=== PATIENT | female | born 2000 | race Caucasian/White ===

== ENCOUNTER 2020-10-11 11:53 | Emergency (ER) | payer OTHER ==
[~2020-10-11] VITALS: Ht 172 cm; Wt 99.0 kg
[2020-10-11] MEDS ORDERED: NS IV 1000 ML 1,000 ML IV SCH (12:15)
[2020-10-11] MEDS ORDERED: KETOROLAC 30 MG/ML VIAL IVP ONE (12:15)
[2020-10-11] MEDS ORDERED: ONDANSETRON 4 MG/2 ML (SDV) Z0FRAN IVP ONE (12:15)
--- NOTE | 2020-10-11 12:20 | ED Abdominal Pain ---
General Chief Complaint: Abdominal/GI Problems Stated Complaint: RLQ PAIN Source of Information: Patient Exam Limitations: No Limitations History of Present Illness Date Seen by Provider: Oct 11, 2020 Time Seen by Provider: 12:18 Initial Comments To ER with reports of right flank pain for about 24 to 36 hours associated with intermittent nausea. No dysuria. History of cholecystectomy and appendectomy. No cough no shortness of breath no fevers no chills. Timing/Duration: 1-2 Days Severity/Quality: Moderate Location: Flank Radiation: No Radiation Activities at Onset: None Associated Symptoms: Denies Symptoms Allergies and Home Medications Allergies Coded Allergies: ciprofloxacin (Verified Allergy, Severe, EDEMA, 10/11/20) Home Medications No Active Prescriptions or Reported Meds Patient Home Medication List Home Medication List Reviewed: Yes Review of Systems Review of Systems Constitutional: see HPI EENTM: No Symptoms Reported Respiratory: No Symptoms Reported Cardiovascular: No Symptoms Reported Gastrointestinal: No Symptoms Reported Genitourinary: See HPI, Flank Pain Musculoskeletal: no symptoms reported Skin: no symptoms reported Psychiatric/Neurological: No Symptoms Reported Endocrine: No Symptoms Reported Hematologic/Lymphatic: No Symptoms Reported Physical Exam Vital Signs Vital Signs - First Documented 10/11/20 12:00 Temp 37.0 Pulse 67 Resp 16 B/P (MAP) 151/87 (108) Pulse Ox 97 O2 Delivery Room Air Capillary Refill : Height/Weight/BMI Height: '" Weight: lbs. oz. kg; BMI Method: General Appearance: WD/WN, no apparent distress HEENT: PERRL/EOMI, normal ENT inspection Respiratory: no respiratory distress, no accessory muscle use Cardiovascular: regular rate, rhythm, no murmur Gastrointestinal: normal bowel sounds, non tender, soft Extremities: normal range of motion, non-tender Back: CVA tenderness (R) Neurologic/Psychiatric: alert, normal mood/affect, oriented x 3 Skin: normal color, warm/dry Progress/Results/Core Measures Results/Orders Lab Results Laboratory Tests Test 10/11/20 12:15 Range/Units White Blood Count 6.6 4.3-11.0 10^3/uL Red Blood Count 4.66 3.80-5.11 10^6/uL Hemoglobin 14.0 11.5-16.0 g/dL Hematocrit 41 35-52 % Mean Corpuscular Volume 88 80-99 fL Mean Corpuscular Hemoglobin 30 25-34 pg Mean Corpuscular Hemoglobin Concent 34 32-36 g/dL Red Cell Distribution Width 12.0 10.0-14.5 % Platelet Count 225 130-400 10^3/uL Mean Platelet Volume 9.9 9.0-12.2 fL Immature Granulocyte % (Auto) 0 % Neutrophils (%) (Auto) 60 42-75 % Lymphocytes (%) (Auto) 31 12-44 % Monocytes (%) (Auto) 7 0-12 % Eosinophils (%) (Auto) 1 0-10 % Basophils (%) (Auto) 0 0-10 % Neutrophils # (Auto) 3.9 1.8-7.8 10^3/uL Lymphocytes # (Auto) 2.1 1.0-4.0 10^3/uL Monocytes # (Auto) 0.5 0.0-1.0 10^3/uL Eosinophils # (Auto) 0.1 0.0-0.3 10^3/uL Basophils # (Auto) 0.0 0.0-0.1 10^3/uL Immature Granulocyte # (Auto) 0.0 0.0-0.1 10^3/uL Urine Color YELLOW Urine Clarity CLEAR Urine pH 8.0 5-9 Urine Specific Tracy 1.015 L 1.016-1.022 Urine Protein NEGATIVE NEGATIVE Urine Glucose (UA) NEGATIVE NEGATIVE Urine Ketones NEGATIVE NEGATIVE Urine Nitrite NEGATIVE NEGATIVE Urine Bilirubin NEGATIVE NEGATIVE Urine Urobilinogen 0.2 < = 1.0 MG/DL Urine Leukocyte Esterase TRACE H NEGATIVE Urine RBC (Auto) NEGATIVE NEGATIVE Urine RBC NONE /HPF Urine WBC 2-5 /HPF Urine Squamous Epithelial Cells 0-2 /HPF Urine Crystals NONE /LPF Urine Bacteria TRACE /HPF Urine Casts NONE /LPF Urine Mucus NEGATIVE /LPF Urine Culture Indicated YES Sodium Level 138 135-145 MMOL/L Potassium Level 4.1 3.6-5.0 MMOL/L Chloride Level 108 H 98-107 MMOL/L Carbon Dioxide Level 21 21-32 MMOL/L Anion Gap 9 5-14 MMOL/L Blood Urea Nitrogen 12 7-18 MG/DL Creatinine 0.68 0.60-1.30 MG/DL Estimat Glomerular Filtration Rate > 60 BUN/Creatinine Ratio 18 Glucose Level 88 70-105 MG/DL Calcium Level 9.2 8.5-10.1 MG/DL Corrected Calcium 8.8 8.5-10.1 MG/DL Total Bilirubin 0.6 0.1-1.0 MG/DL Aspartate Amino Transf (AST/SGOT) 24 5-34 U/L Alanine Aminotransferase (ALT/SGPT) 25 0-55 U/L Alkaline Phosphatase 52 40-136 U/L C-Reactive Protein High Sensitivity 0.07 0.00-0.50 MG/DL Total Protein 7.8 6.4-8.2 GM/DL Albumin 4.5 3.2-4.5 GM/DL Serum Test, Qualitative NEGATIVE NEGATIVE My Orders Orders - PATRICIA ARCEO APRN Ua Culture If Indicated (10/11/20 11:58) Cbc With Automated Diff (10/11/20 11:58) Comprehensive Metabolic Panel (10/11/20 11:58) Hs C Reactive Protein (10/11/20 11:58) Ed Iv/Invasive Line Start (10/11/20 11:58) Hcg,Qualitative Serum (10/11/20 11:58) Ct Abdomen/Pelvis W Wo (10/11/20 12:09) Ketorolac Injection (Toradol Injection) (10/11/20 12:15) Ondansetron Injection (Zofran Injectio (10/11/20 12:15) Ns Iv 1000 Ml (Sodium Chloride 0.9%) (10/11/20 12:15) Iohexol Injection (Omnipaque 350 Mg/Ml 1 (10/11/20 12:45) Received Contrast (Hold Metformin- Contr (10/11/20 12:45) Sodium Chloride Flush (Catheter Flush Sy (10/11/20 12:45) Ns (Ivpb) (Sodium Chloride 0.9% Ivpb Bag (10/11/20 12:45) Urine Culture (10/11/20 12:15) Medications Given in ED Current Medications Medications Dose Ordered Sig/Gogo Route Start Time Stop Time Status Last Admin Dose Admin Iohexol 100 ml ONCE ONCE IV 10/11/20 12:45 10/11/20 12:46 DC 10/11/20 13:00 100 ML Ketorolac Tromethamine 15 mg ONCE ONCE IVP 10/11/20 12:15 10/11/20 12:16 DC 10/11/20 12:44 15 MG Ondansetron HCl 4 mg ONCE ONCE IVP 10/11/20 12:15 10/11/20 12:16 DC 10/11/20 12:40 4 MG Sodium Chloride 10 ml NEEDED PRN IV 10/11/20 12:45 10/11/20 13:00 10 ML Sodium Chloride 100 ml ONCE ONCE IV 10/11/20 12:45 10/11/20 12:46 DC 10/11/20 13:00 80 ML Vital Signs/I&O 10/11/20 12:00 Temp 37.0 Pulse 67 Resp 16 B/P (MAP) 151/87 (108) Pulse Ox 97 O2 Delivery Room Air Diagnostic Imaging Diagonstic Imaging: CT Comments NAME: YULISA ESCOBAR MED REC#: [id number] PT STATUS: REG ER : 2000 PHYSICIAN: PATRICIA ARCEO APRN ADMIT DATE: 10/11/20/ER Draft Date of Exam:10/11/20 CT ABDOMEN/PELVIS W WO PROCEDURE: CT abdomen and pelvis with and without contrast. TECHNIQUE: Precontrast acquisitions were acquired through the abdomen and pelvis. Multiple contiguous axial images were obtained through the abdomen and pelvis after the administration of intravenous contrast. Auto Exposure Controls were utilized during the CT exam to meet ALARA standards for radiation dose reduction. INDICATION: Right posterior pain radiating to the front. No prior studies are available for comparison. Lung bases are clear. No discrete liver mass is detected. Bladder surgically absent. No biliary ductal dilatation is seen. Pancreas is unremarkable. Spleen is enlarged measuring up to 14.7 cm. No adrenal mass is detected. Kidneys are unremarkable. No definite renal calculi or evidence of hydronephrosis is identified. Aorta is non-aneurysmal. Small and large bowel loops are normal caliber. There is no obstruction. No free fluid or fluid collection is seen. The uterus and ovaries are unremarkable. The bladder is unremarkable. No abdominal or pelvic lymphadenopathy is identified. Bony structures appear nonacute. IMPRESSION: Unremarkable pre and postcontrast CT of the abdomen and pelvis. Dictated on workstation # [id number] Dict: 10/11/20 1314 Trans: 10/11/20 1322 CVB [id number] Interpreted by: EVON FRANCIS MD Electronically signed by: Departure Communication (Admissions) CT is unremarkable. Labs are unremarkable. Urine is unremarkable. This may simply be musculoskeletal. I will give her a course of NSAIDs plus muscle relaxers. Impression Primary Impression: Right flank pain Disposition: HOME, SELF-CARE Condition: Stable Departure-Patient Inst. Decision time for Depature: 13:22 Referrals: NO,LOCAL PHYSICIAN (PCP/Family) Primary Care Physician Patient Instructions: No Instuctions Given Add. Discharge Instructions: 1. Return to ER for any concerns 2. Follow-up with your doctor next week 3. All discharge instructions reviewed with patient and/or family. Voiced understanding. Scripts Naproxen (Naprosyn) 500 Mg Tablet 500 MG PO BID PRN for PAIN-MODERATE (5-7), #30 TAB 0 Refills Prov: PATRICIA ARCEO APRN 10/11/20 Methocarbamol (Robaxin-750) 750 Mg Tablet 750 MG PO Q4H PRN for PAIN-MODERATE (5-7), #14 TAB Prov: PATRICIA ARCEO APRN 10/11/20 Work/School Note: Work Release Form Date Seen in the Emergency Department: Oct 11, 2020 Return to Work: Oct 12, 2020 PATRICIA ARCEO APRN Oct 11, 2020 12:20
[2020-10-11 12:22] LABS: BASOPHILS % (AUTO) 0 % (0-10); BILIRUBIN,URINE NEGATIVE (NEGATIVE); CLARITY,URINE CLEAR; COLOR,URINE YELLOW; EOSINOPHILS # (AUTO) 0.1 10^3/uL (0.0-0.3); EOSINOPHILS % (AUTO) 1 % (0-10); GLUCOSE, URINE (UA) NEGATIVE (NEGATIVE); HEMATOCRIT 41 % (35-52); KETONES,URINE NEGATIVE (NEGATIVE); LEUKOCYTE ESTERASE ,URINE TRACE (NEGATIVE); LYMPHOCYTES # (AUTO) 2.1 10^3/uL (1.0-4.0); LYMPHOCYTES % (AUTO) 31 % (12-44); MEAN CORPUSCULAR HEMOGLOBIN 30 pg (25-34); MEAN CORPUSCULAR HGB CONC 34 g/dL (32-36); MEAN CORPUSCULAR VOLUME 88 fL (80-99); MEAN PLATELET VOLUME 9.9 fL (9.0-12.2); MONOCYTES # (AUTO) 0.5 10^3/uL (0.0-1.0); MONOCYTES % (AUTO) 7 % (0-12); NEUTROPHILS # (AUTO) 3.9 10^3/uL (1.8-7.8); NEUTROPHILS % (AUTO) 60 % (42-75); NITRITE,URINE NEGATIVE (NEGATIVE); PLATELET COUNT 225 10^3/uL (130-400); PROTEIN,URINE NEGATIVE (NEGATIVE); WHITE BLOOD COUNT 6.6 10^3/uL (4.3-11.0)
[2020-10-11 12:30] LABS: ALBUMIN 4.5 GM/DL (3.2-4.5); CHLORIDE 108 MMOL/L (98-107); POTASSIUM 4.1 MMOL/L (3.6-5.0); SODIUM 138 MMOL/L (135-145)
[2020-10-11 12:31] LABS: CALCIUM 9.2 MG/DL (8.5-10.1)
[2020-10-11 12:32] LABS: GLUCOSE 88 MG/DL (70-105); TOTAL PROTEIN 7.8 GM/DL (6.4-8.2)
[2020-10-11 12:33] LABS: CARBON DIOXIDE 21 MMOL/L (21-32)
[2020-10-11 12:34] LABS: BACTERIA,URINE TRACE /HPF; BILIRUBIN,TOTAL 0.6 MG/DL (0.1-1.0); SQUAMOUS EPITHELIAL CELL,UR 0-2 /HPF
[2020-10-11 12:36] LABS: ALKALINE PHOSPHATASE 52 U/L (40-136); CREATININE SERUM 0.68 MG/DL (0.60-1.30); GFR ESTIMATED > 60
[2020-10-11 12:37] LABS: BUN/CREATININE RATIO 18
[2020-10-11 12:39] LABS: ALANINE AMINOTRANSFERASE 25 U/L (0-55)
[2020-10-11] MEDS ORDERED: HOLD METFORMIN - RECEIVED CONTRAST 20 ML VIAL IV SCH (12:45)
[2020-10-11] MEDS ORDERED: NS 100 ML (IVPB) BAG IV ONE (12:45)
[2020-10-11] MEDS ORDERED: IOHEXOL 350 MG/ML 100 ML (OMNIPAQUE 350) VIAL IV ONE (12:45)
[2020-10-11] MEDS ORDERED: CATHETER FLUSH 10 ML SYR IV PRN (12:45)
--- NOTE | 2020-10-11 13:22 | Diagnostic Imaging Report ---
PROCEDURE: CT abdomen and pelvis with and without contrast. TECHNIQUE: Precontrast acquisitions were acquired through the abdomen and pelvis. Multiple contiguous axial images were obtained through the abdomen and pelvis after the administration of intravenous contrast. Auto Exposure Controls were utilized during the CT exam to meet ALARA standards for radiation dose reduction. INDICATION: Right posterior pain radiating to the front. No prior studies are available for comparison. Lung bases are clear. No discrete liver mass is detected. Bladder surgically absent. No biliary ductal dilatation is seen. Pancreas is unremarkable. Spleen is enlarged measuring up to 14.7 cm. No adrenal mass is detected. Kidneys are unremarkable. No definite renal calculi or evidence of hydronephrosis is identified. Aorta is non-aneurysmal. Small and large bowel loops are normal caliber. There is no obstruction. No free fluid or fluid collection is seen. The uterus and ovaries are unremarkable. The bladder is unremarkable. No abdominal or pelvic lymphadenopathy is identified. Bony structures appear nonacute. IMPRESSION: Unremarkable pre and postcontrast CT of the abdomen and pelvis. Dictated by: Dictated on workstation # [id number]
--- NOTE | 2020-10-11 13:27 | NUR ---
PT STATES SHE FEELS BETTER.
[2020-10-11] MEDS ORDERED: METH-313 PO (13:31)
[2020-10-11] MEDS ORDERED: NAPR-1071 PO (13:31)
[2020-10-11 13:57] VITALS: BP 151/87
== END 2020-10-11 13:57 | disposition home or self-care (01) ==
LOC: ER 11:56
DX: R10.9 Unspecified abdominal pain (principal); Z88.1 Allergy status to other antibiotic agents; Z90.49 Acquired absence of other specified parts of digestive tract
CPT/HCPCS: 36415; 74178; 80053; 81000; 84703; 85025; 86141; 87088